=== PATIENT | female | born 1950 | race Caucasian/White ===

== ENCOUNTER 2018-09-13 06:19 | Emergency (ER) | payer BC, OTHER ==
[2018-09-13] MEDS ORDERED: KETOROLAC TROMETHAMINE 60 MG/2 ML VIAL IM ONE (06:33)
--- NOTE | 2018-09-13 06:34 | PDOC ---
History of Present Illness - General Chief Complaint: Pain, Acute Stated Complaint: PAIN RIGHT UPPER SIDE X 1 WEEK Time Seen by Provider: 09/13/18 06:28 History Source: Patient Exam Limitations: No Limitations - History of Present Illness Initial Comments: 09/13/18 06:33 This is a 68-year-old female who comes in complaining of right rib pain. Patient said she has had a cough for 1 week. Patient denies any fevers or chills. Patient said cough is a dry cough. Patient said while coughing she had acute onset of right sided rib pain patient said now there is some radiation to her shoulder so she came in for evaluation. Patient denies any fevers or chills. Patient has a history of hypertension and high cholesterol but is otherwise healthy. Allergies: None Past Medical History: As per history of present illness Social history: Lives with family. No smoking. No alcohol. No illicit drugs. Surgical history: None General: No fevers or chills, no weakness, no weight loss HEENT: No change in vision. No sore throat,. No ear pain CardioVascular: no chest discomfort. No shortness of breath Respiratory: + cough, no wheezing. + pain right sided chest pain on cough, breathing and movement Gastrointestinal: no nausea, vomiting, diarrhea or constipation, No rectal bleeding Genitourinary: No dysuria, hematuria, or frequency Musculoskeletal: No joint or muscle pain or swelling Neurologic: No headache, vertigo, dizziness or loss of consciousness Psychiatric: nor depression Skin: No rashes or easy bruising Endocrine: no increased thirst or abnormal weight change Allergic: no skin or latex allergy All other systems reviewed and normal Exam: General: Well-nourished well-developed individual, no acute distress HEENT: Throat: Normal, tonsils normal, no erythema or exudate Neck: Supple, no meningeal signs, no lymphadenopathy Eyes::Pupils equal reactive and round, extraocular motion intact Chest: Nontender to palpation Cardiac: S1-S2 normal, regular rate and rhythm, no murmurs rubs or gallops Respiratory: Lungs clear to auscultation bilateral however poor entry in air entry secondary to splinting from the pain., The pain is reproduced with palpation over the right lower ribs laterally. There is no crepitus Extremities: Warm, dry, no cyanosis, clubbing, or edema Skin: No rashes Neuro: Alert and oriented x3, CN II - XII intact, nonfocal exam with normal strength, normal sensation, normal reflexes, normal gait, Psych: Normal mood and affect Chest x-ray and rib xrays no acute pathology or disease no acute fracture of dislocation Past History - Past Medical History Allergies/Adverse Reactions: Allergies Allergy/AdvReac Type Severity Reaction Status Date / Time No Known Drug Allergies Allergy Verified 07/08/15 07:14 Home Medications: Ambulatory Orders Meloxicam 7.5 mg PO PRN 09/13/18 Rosuvastatin Calcium [Crestor] 5 mg PO DAILY 09/13/18 Anemia: No Asthma: No Cancer: No Cardiac Disorders: No CVA: No COPD: No CHF: No Dementia: No Diabetes: No GI Disorders: No Disorders: No HTN: No Hypercholesterolemia: Yes Liver Disease: No Seizures: No Thyroid Disease: No - Surgical History Abdominal Surgery: No Appendectomy: No Cardiac Surgery: No Cholecystectomy: No Lung Surgery: No Neurologic Surgery: No Orthopedic Surgery: Yes (LEFT HIP REPLACEMENT 2011) - Suicide/Smoking/Psychosocial Hx Smoking History: Current every day smoker Have you smoked in the past 12 months: Yes Number of Cigarettes Smoked Daily: 10 'Breaking Loose' booklet given: 08/12/15 Hx Alcohol Use: No Drug/Substance Use Hx: No Substance Use Type: Alcohol Hx Substance Use Treatment: No *DC/Admit/Observation/Transfer Diagnosis at time of Disposition: Acute chest wall pain - Discharge Dispostion Disposition: HOME Condition at time of disposition: Stable Decision to Admit order: No - Referrals Referrals: Teresa Chen MD [Primary Care Provider] - - Patient Instructions Additional Instructions: You most likely pulled a muscle I do not see any fractured ribs on x-rays. I don't see any evidence of infection or pneumonia. For the pain take an anti-inflammatory either take Motrin 3 tablets 3 times a day or Aleve 2 tablets twice a day take it with food don't take on an empty stomach as they both can irritate her stomach, Return to the emergency department immediately with ANY new, persistent or worsening symptoms. Continue any medications as previously prescribed by your physician. You should follow up with your primary doctor as soon as possible regarding today's emergency department visit. . Please make sure your doctor reviews the results of your emergency evaluation. Thank you for coming to the Emergency Department today for your care. It was a pleasure to see you today. Please note that your evaluation is INCOMPLETE until you follow-up with your doctor. - Post Discharge Activity
[2018-09-13 06:35] VITALS: BP 189/86; PULSE 82; TEMP 97.1; BMI 26.6
[2018-09-13] MEDS ORDERED: KETOROLAC TROMETHAMINE 60 MG/2 ML VIAL ONE (06:48)
== END 2018-09-13 07:04 | disposition home or self-care (01) ==
LOC: FER 06:19
PROC: 3E0233Z Introduction of Anti-inflammatory into Muscle, Percutaneous Approach (ICD-10-PCS; principal; 2018-09-13)
DX: R07.89 Other chest pain (principal); E78.00 Pure hypercholesterolemia, unspecified
CPT/HCPCS: 71046-TC-FY; 71101-TC-RT-FY; 99281-25